=== PATIENT | female | born 1980 | race Caucasian/White ===

== ENCOUNTER 2021-09-19 09:00 | Outpatient (RCR) | payer OTHER, SELFPAY | END 2021-11-07 09:50 | disposition home or self-care (01) | LOC: HO.PTCHIC 09:00 | PROVIDERS: PCP Internal Medicine; Visit Provider Obstetrics & Gynecology | DX: G89.18 Other acute postprocedural pain (principal); M54.50 Low back pain, unspecified | CPT/HCPCS: 97110; 97112; 97140; 97162 ==